=== PATIENT | male | born 1990 | race Caucasian/White ===

== ENCOUNTER → 2018-04-17 17:28 | Outpatient (CLI) | payer OTHER, MEDICAID, SELFPAY ==
[2018-04-17 19:40] LABS: HIV 1 and 2 Antibody NEGATIVE (NEGATIVE); Hep C Virus Ab w/Reflex Quant NEGATIVE s/c (NEGATIVE)
[2018-04-17 19:48] LABS: Urine N gonorrhoeae NOT DETECTED
[2018-04-17 20:00] LABS: Urine Chlamydia NOT DETECTED
[2018-04-20 07:57] LABS: Hepatitis B Core Antibody Nonreactive (Nonreactive)
[2018-04-20 14:07] LABS: RPR Screen Nonreactive (Nonreactive)
[2018-04-22 20:19] LABS: HSV 1 IgM Screen Positive (Negative); HSV 2 IgM Screen Positive (Negative)
== END ==
PROVIDERS: Family Provider Family Medicine; PCP Family Medicine; Visit Provider Physician Assistant
DX: Z11.3 Encounter for screening for infections with a predominantly sexual mode of transmission (principal); A64 Unspecified sexually transmitted disease
CPT/HCPCS: 36415; 86592; 86694; 86703; 86704; 86803; 87491; 87591